=== PATIENT | female | born 1940 | race Caucasian/White ===

== ENCOUNTER → 2016-04-02 | Outpatient (CLI) | payer OTHER | LOC: MOB LAB 10:00 | PROVIDERS: ATTEND Family Medicine | DX: N30.90 Cystitis, unspecified without hematuria (principal); R30.0 Dysuria | CPT/HCPCS: 87077; 87088; 87186 ==

== ENCOUNTER → 2016-07-28 | Outpatient (CLI) | payer OTHER ==
[2016-07-28 13:19] LABS: BILIRUBIN,URINE NEGATIVE (NEG); COLOR,URINE YELLOW; GLUCOSE, URINE (UA) NEGATIVE (NEG); NITRATE,URINE NEGATIVE (NEG); OCCULT BLOOD,URINE NEGATIVE (NEG); PH,URINE 6.5 (5.0-8.5); PROTEIN,URINE NEGATIVE (NEG); UROBILINOGEN,URINE 0.2 mg/dL (0.2)
[2016-07-28 14:12] LABS: CLARITY,URINE CC (CLEAR)
[2016-07-28 14:19] LABS: RBC,URINE 0-3 /hpf; URINE SAMPLE TYPE CLEAN CATCH URINE
[2016-07-28 14:20] LABS: BACTERIA,URINE FEW
== END ==
LOC: MOB LAB 10:52
PROVIDERS: ATTEND Family Medicine
DX: R35.0 Frequency of micturition (principal); R82.99 Other abnormal findings in urine
CPT/HCPCS: 81001; 87077; 87088; 87186